=== PATIENT | female | born 1940 | race Caucasian/White ===

== ENCOUNTER 2017-02-26 00:56 | Inpatient (IN) | payer OTHER ==
[~2017-02-26] VITALS: Ht 157.5 cm; Wt 72.6 kg
--- NOTE | 2017-02-26 01:32 | NUR ---
PT PRESENTS TO ED WITH CHIEF COMPLAINT OF GENERALIZED WEAKNESS SINCE 0000. PT WAS BIB [facility]. PER MEDIC PT TAKES METFORMIN FOR DM BUT DOES NOT CHECK HER BLOOD SUGAR. PER MEDIC PT WAS SSEN AT [facility] 3 DAYS AGO FOR A BLOOD SUGAR OF 40. MEDICS REPORT HER HER BLOOD SUGAR IN ROUTE TO [facility] WAS 73. PT REPORTS THAT AT AROUND MIDNIGHT SHE WOKE UP AND SHE WAS "SOAKING WET WTIH SWEAT". PT STATES SHE ALSO FELT EXTREMELY WEAK SO SHE CALLED OUT TO HER DAUGHTER AND HER DAUGHTER CALLED 911. PT ALSO REPORTS A DRY COUGH X 3 DAYS BUT LUNGS ARE CLEAR EMILY UPON AUSCULTATION. PT DENIES FEVER ABDOMINAL PAIN NAUSEA VOMITING DIARRHEA CONSTIPATION CP SOB OR HEADACHE. PT SKIN IS WARM AND DRY. PT BREATHING EVEN AND UNLABORED AND SPEAKING IN FULL CLEAR SENTENCES. PT AA&OX4. PT STABLE. NO ACUTE DISTRESS. CALL LIGHT WIHIN REACH. WILL CONTINUE TO MONITOR. DAUGHTER AT BEDSIDE.
[2017-02-26 01:59] LABS: CALCIUM 8.8 mg/dL (8.5-10.1); CHLORIDE SERUM 102 mmol/L (98-107); CREATININE SERUM 0.7 mg/dL (0.6-1.0); GLUCOSE SERUM 68 mg/dL (74-106); POTASSIUM SERUM 3.3 mmol/L (3.5-5.1); SODIUM SERUM 138 mmol/L (136-145)
[2017-02-26 02:04] LABS: ALBUMIN 3.7 g/dL (3.4-5.0); ALKALINE PHOSPHATASE 55 U/L (46-116); ALT/SGPT 46 U/L (14-59); AST/SGOT 51 U/L (15-37); BILIRUBIN TOTAL 0.49 mg/dL (0.20-1.00)
[2017-02-26 02:19] LABS: BASOPHIL % 0.5 % (0-2); PLATELET COUNT 102 x10^3mcL (130-400)
[2017-02-26 02:22] LABS: CK-MB 4.3 ng/mL (0-3.6)
[2017-02-26] MEDS ORDERED: GLUCOPHAGE XR500 MG (02:52)
[2017-02-26] MEDS ORDERED: GLIPIZIDE2.5 M1 (02:52)
[2017-02-26] MEDS ORDERED: METFORMIN HCL500 MG PO (02:56)
[2017-02-26] MEDS ORDERED: TRAZODONE50 M1 PO (02:57)
[2017-02-26] MEDS ORDERED: GLUCOTROL5 MG PO (02:57)
[2017-02-26] MEDS ORDERED: ALENDRONATE SOD70 M2 PO (02:58)
--- NOTE | 2017-02-26 03:00 | NUR ---
REPORT CALLED TO KRISTINA LINARES TO ASSUME CARE OF PT.
[2017-02-26 03:25] VITALS: BP 122/60
[2017-02-26 04:01] VITALS: BP 122/60
[2017-02-26 04:32] LABS: CHOLESTEROL/HDL RATIO 1.9
[2017-02-26 04:34] LABS: T3 TOTAL 1.08 ng/mL
[2017-02-26 04:36] LABS: FREE T4 0.98 ng/dL (0.76-1.46); T4(THYROXINE) 9.2 ug/dL (4.7-13.3)
--- NOTE | 2017-02-26 04:43 | NUR ---
RECEOVED PT. FROM ER VIA [facility] ACCOMPANIED BY ER NURSE AND DAUGHTER. SHE IS AWAKE, ALERT, ORIENTED X4. DENIES HEADACHE OR DIZZINES. PT. STATED THAT SHE MISSED HER FOOTOMG A FEW DAYS AGO AT HOME AND FELL DOWN. BREATH SOUNDS CLEAR THROUGHOUT LUNG GODWIN, RESP. EVEN, UNLABORED. NO SOB NOTED. PT.ON TELE #32, NSR. PEDAL PULSES MODERATE EMILY., NO EDEMA NOTED. IV HEPARIN, STARTED IN ER AT 840 UNITS, INFUSING ON ARRIVAL FROM ER. / TERESSA MADE ROUNDS, DID HX AND ASSESMENT FROM PT. ORDERS PENDING AT THIS TIME.
--- NOTE | 2017-02-26 05:00 | NUR ---
PER DR. GANNON, PT.'S HEPARIN ON HOLD FOR NOW UNTIL CT OF THE HEAD IS COMPLETED. ALSO OK TO GIVE PT. CLEAR LIQUIDDS IF SHE TOLERATES THEM. W/ NO ABD. PAIN.
--- NOTE | 2017-02-26 05:34 | NUR ---
PT. WENT DOWN TO RADIOLOGY FOR CT OF THE HEAD, EXAM COMPLETED. PT. ASSISTED BACK TO BED.
[2017-02-26 05:52] VITALS: BP 122/89
--- NOTE | 2017-02-26 06:54 | NUR ---
PT.'S BLOOD SUGAR LEVEL DOWN TO 31. REPEATED LEVEL WERE ALSO 31. PT. AROUSABLE. STATED THAT SHE FELT LIKE SOMETHING WAS WRONG. 1 AMP D50 IVP GIVEN. APPLE JUICE ALS GIVEN. WILL RECHECK BLOOD SUGAR PER PROTOCOL
--- NOTE | 2017-02-26 07:06 | NUR ---
REPEATED BLOOD SUGAR LEVEL 231.
[2017-02-26 08:16] LABS: microscopic required? YES; urine erythrocyte TRACE (NEGATIVE)
--- NOTE | 2017-02-26 08:30 | NUR ---
AM ROUNDS DONE BY DR. REEVES AND MEDICAL TEAM.PLAN TO CONT. WITH CURRENT TX AND CHANGE IVF TO D5NS. PT AGREED WITH PLAN, CONCERNS ADDRESSED.
[2017-02-26 09:17] VITALS: BP 127/64
--- NOTE | 2017-02-26 09:30 | NUR ---
RESUMED HEPARIN DRIP PER ORDER, STARTED ON 700UNITS/HR. PTT ORDERED FOR 1330. PT IN NO DISTRESS.NO ACTIVE BLEEDING NOTED. NO C/O PAIN OR DISCOMFORT AT THIS TIME. CALLLIGHT WITHIN REACH.
[2017-02-26 13:02] VITALS: BP 112/49
--- NOTE | 2017-02-26 14:56 | NUR ---
PT IN NO DISTRESS, FAMILY AT BEDSIDE.NO C/O PAIN OR DISCOMFORT
--- NOTE | 2017-02-26 15:20 | NUR ---
PTT REPORTED BY LAB TO BE 60.8. NO CHANGES MADE TO HEPARIN DRIP. NEXT PTT ORDERED FOR 1899.
--- NOTE | 2017-02-26 18:58 | NUR ---
PT REMAINS IN NO DISTRESS, AWAKE, ALERT AND ORIENTED. VS WNL. NO C/O PAIN OR DISCOMFORT AT THIS TIME. GLU THIS EVENING IS 188. PT ON IVF D5NS. CALLLIGHT WITHIN REACH. WILL BE ENDORSED TO INCOMING SHIFT.
--- NOTE | 2017-02-26 19:46 | NUR ---
PT RESTING IN BED. RR EVEN AND UNLABORED. NO ACUTE DISTRESS NOTED. PT AOX4. TELE#32, SR, HR 83. DENIES CP/PRESSURE. LUNG SOUNDS CLEAR, ON RA. DENIES SOB. BOWEL SOUNDS ACTIVE. GENERALIZED WEAKNESS. BRP WITH ASSISTANCE. IV INTACT AND PATENT. BED IN LOWEST POSITION. CALL LIGHT WITHIN REACH. WILL CONTINUE TO MONITOR.
[2017-02-26 22:09] VITALS: BP 108/48
--- NOTE | 2017-02-26 22:09 | NUR ---
ORDERS RECEIVED FROM DR. ORTEGA TO EDDIE HEPARIN.
--- NOTE | 2017-02-26 22:29 | NUR ---
PT REFUSED INSULIN FOR BS 205
--- NOTE | 2017-02-26 23:52 | NUR ---
PT REQUESTED SLEEPING PILL, AMBIEN WAS ORDERED AND [employer] PER ORDERS. PT IS NOW CONFUSED, TERESSA NOTIFIED. BS RECHECKED AND WAS 145.
--- NOTE | 2017-02-27 02:30 | NUR ---
FLEET ENEMA ADMINISTERED. TOLERATED WELL.
[2017-02-27 05:37] VITALS: BP 107/41
[2017-02-27 06:39] LABS: RED CELL DISTRIBUTION WIDTH 13.2 % (11.5-14.5)
[2017-02-27 06:55] LABS: CALCIUM 7.9 mg/dL (8.5-10.1); CARBON DIOXIDE 24.1 mmol/L (21-32); CHLORIDE SERUM 107 mmol/L (98-107); CREATININE SERUM 0.7 mg/dL (0.6-1.0); GLUCOSE SERUM 109 mg/dL (74-106); POTASSIUM SERUM 3.8 mmol/L (3.5-5.1); SODIUM SERUM 142 mmol/L (136-145)
[2017-02-27 06:58] LABS: ALBUMIN 2.9 g/dL (3.4-5.0)
[2017-02-27 07:07] LABS: PLATELET COUNT 90 x10^3mcL (130-400)
--- NOTE | 2017-02-27 07:15 | NUR ---
RECEIVED Pt. AAOX4. RESPIRATIONS EVEN AND UNLABORED. DENIES PAIN/DISCOMFORT AT THIS TIME. DENIES CHEST PAIN/PRESSURE. DISTRESS NOTED. TELE IN PLACE. IV AT RIGHT AC PATENT AND INTACT. BED LOW/LOCKED. CALL LIGHT IN REACH.
[2017-02-27 10:00] VITALS: BP 121/44
[2017-02-27 11:01] LABS: ATYPICAL LYMPH 16 %; BAND NEUTROPHIL 14 % (0-10); BASOPHIL 2 % (0-2); MONOCYTE 6 % (0-7); PLATELET MORPHOLOGY PLATELETS DECREASED; SEGMENTED NEUTROPHILS 18 % (37-75); rbc morphology (normal/abnorm) ABNORMAL (NORMAL)
--- NOTE | 2017-02-27 11:25 | NUR ---
TELE 32 RETURNED. Pt. DENIES CHEST PAIN/PRESSURE.
[2017-02-27 13:29] VITALS: BP 138/58
--- NOTE | 2017-02-27 15:00 | NUR ---
AMBULATED Pt. WITH STEADY GAIT NOTED.
--- NOTE | 2017-02-27 16:00 | NUR ---
Initial Nutrition Assessment Dx: SIRS; D/O of ANS suspect 2/2 Hypoglycemic Episode PMHx: DM, IBS PSHx: upper back surgery in 2006 Labs: BG 109H, FSBS: 112-176mg/dL w/ 3 units, Alb 2.9L, TROP 1.431H, A1C 5.2, lipase 449H, WBC 2.5L, H/H 10.9/33L Meds: humulin R, lactinex, NS, colace, klor-con, D50, zofran, morphine Current Diet Order: CCHO 60gm (02/26) PO Intakes: 100% (02/26); 60% (02/27) Ht: 157.48cm,62". Wt: 160lbs, 72.5kg. BMI: 29.3 kg/m2 (Overweight) IBW: 110lb, 50 kg. %IBW: 145%. UBW: 160lbs for the past 25yrs Age: 76 Y/O F Food Allergies: NKFA- does not like milk or yogurt Skin: intact. Gabriel:21 Edema: None noted GI:abd soft and round, bowel sounds active, C/O loose stools . Last BM:1 loose (02/26) D.O Consult: DM education; RN Trigger: N/V/D > 3 days Pt admitted w/ SIRS; D/O of ANS suspect 2/2 Hypoglycemic Episode. Pt seen at bedside w/ daughter present, pt reports being very unhappy w/ her PCP, wants to change doctors once she is D/C from the hospital, has been DM for the past 25yrs, has been able to control BG via meals and PO DM meds, has been taking Metformin and Glipizide for the past 25 yrs, C/O diarrhea- denies other GI issues, at home the daughter prepares 3 small meals per day, the pt was able to state 3 basics of the DM diet but wanted confirmation on the current diet regimen she has at home, the RD reviewed w/ pt and daughter on DM diet and CHO counting at bedside, educational handout given, the pt and daughter were highly receptive and engaged, the RD answered all questions that were presented to her. Problem with: N: None. V: None. D: yes. C: None. Problem with: Chewing: None. Swallowing: None. Current Appetite: fair Recent Weight Change: unable to assess. % Weight Change: unable to assess Vitamin/Supplement Use: none Diet at Home: 3 small meals as prepared by daughter Physical Activity: none Education: yes extensively on DM diet Estimated Nutritional Needs Based on CBW 160 lb, 72.5kg Energy: 8937-4823 kcal/day (25-30 kcal/kg for SIRS) Protein: 73-87 g/day (1-1.2 g/kg for SIRS) Fluid: 7186-6207 ml/day (25-30 ml/kg for SIRS) or per MD Nutrition Diagnosis 1. Food and nutrition related knowledge deficit related to lack of in-depth nutrition education on DM diet 2/2 DM as evidenced by pt requesting diet review at bedside Intervention 1. C/W CCHO 60gm. Make food preferences known. 2. Adjust BM regimen PRN Monitor/Evaluate Goal: PO intakes to meet >/=75% of estimated needs; Pt able to state 2 basics of the nutrition education Monitor: PO intakes/tolerance, labs, skin integrity, GI function, wt, nutrition knowledge F/U in 3-5 days as MODERATE risk (03/02-03/04)
--- NOTE | 2017-02-27 16:01 | NUR ---
1. C/W [facility] 60gm. Make food preferences known. 2. Adjust BM regimen PRN
[2017-02-27 17:21] VITALS: BP 104/46
--- NOTE | 2017-02-27 17:59 | NUR ---
Pt. BP 104/[address] KAUFMAN NOTIFIED.
--- NOTE | 2017-02-27 19:20 | NUR ---
Pt. AAOX4. RESPIRATIONS EVEN AND UNLABORED. DENIES PAIN/DISCOMFORT. DENIES CHEST PAIN/PRESSURE. NO DISTRESS AT THIS TIME. IVF RUNNING TO IV AT RIGHT FOREARM PATENT AND INTACT. BED LOW/LOCKED. CALL LIGHT IN REACH.
[2017-02-27 21:25] VITALS: BP 127/46
[2017-02-28 05:48] VITALS: BP 136/43
[2017-02-28 06:23] LABS: CARBON DIOXIDE 26.1 mmol/L (21-32); CHLORIDE SERUM 109 mmol/L (98-107); CREATININE SERUM 0.6 mg/dL (0.6-1.0); GLUCOSE SERUM 75 mg/dL (74-106); POTASSIUM SERUM 3.6 mmol/L (3.5-5.1); SODIUM SERUM 142 mmol/L (136-145)
[2017-02-28 06:25] LABS: RED CELL DISTRIBUTION WIDTH 13.4 % (11.5-14.5)
[2017-02-28 06:32] LABS: PLATELET COUNT 89 x10^3mcL (130-400)
[2017-02-28 06:42] LABS: ALBUMIN 3.1 g/dL (3.4-5.0)
--- NOTE | 2017-02-28 06:50 | NUR ---
PATIENT RESTING IN BED. RESPIRATION EVEN AND UNLABORED, ON ROOM AIR. ASSISTED WITH NEEDS. SAFETY OBSERVED. PLACED CALL LIGHT WITHIN REACH AT ALL TIMES.
[2017-02-28 09:56] VITALS: BP 127/43
[2017-02-28] MEDS ORDERED: AUGMENTIN1 TA1 PO (10:20)
[2017-02-28] MEDS ORDERED: LAC PO (10:20)
--- NOTE | 2017-02-28 10:33 | NUR ---
AAO TIMES 4. NO TELE. LUNGS CTA. NO SOB. O2 SAT ON RA 97%. BS'S ACTIVE TIMES 4. MATTHEWS STRONG. PERIPHERAL PULSES PALPABLE. NO EDEMA. SCD BLE. NO C/O PAIN. NO SOB. O2 SAT ON RA 97%. IV SITE CDI. COOPERATIVE AND PLEASANT. MEDICAL ROUNDS PERFORMED BY DR REEVES AND THE MEDICINE TEAM AT 0812.
[2017-02-28 10:57] VITALS: BP 127/43
--- NOTE | 2017-02-28 13:49 | NUR ---
PRIOR TO DISCHARGE, PT WAS GIVEN DISCHARGE INSTRUCTIONS AND PRESCRIPTION WAS SENT ELECTRONICALLY SUCCESSFUL. DC'D SL ANGIO INTACT. PT VERBALIZED "I UNDERSTAND" TO ALL INSTRUCTIONS.
== END 2017-02-28 13:39 | disposition home or self-care (01) | DRG 637 ==
LOC: ED 00:56 → DU 02:40 → MU 02:40 → DU 03:15 → MU 02-27 11:21
PROVIDERS: Emergency Medicine; Family Medicine; ADMIT Family Medicine
DX: E11.649 Type 2 diabetes mellitus with hypoglycemia without coma (principal); G93.41 Metabolic encephalopathy; R65.10 Systemic inflammatory response syndrome (SIRS) of non-infectious origin without acute organ dysfunction; E44.0 Moderate protein-calorie malnutrition; D61.818 Other pancytopenia; I24.8 Other forms of acute ischemic heart disease; I42.9 Cardiomyopathy, unspecified; R31.29 Other microscopic hematuria; E87.6 Hypokalemia; K58.9 Irritable bowel syndrome, unspecified; J32.0 Chronic maxillary sinusitis; L30.8 Other specified dermatitis; L85.3 Xerosis cutis; Z79.84 Long term (current) use of oral hypoglycemic drugs; Z68.29 Body mass index [BMI] 29.0-29.9, adult
CPT/HCPCS: 82962; 83880; 84439; J1644; J3490; J7030; J7042; Q0092